=== PATIENT | male | born 1985 | race Caucasian/White ===

== ENCOUNTER 2017-12-11 10:24 | Emergency (ER) | payer SELFPAY ==
[~2017-12-11] VITALS: Ht 180.3 cm; Wt 77.1 kg
[2017-12-11 10:50] VITALS: BP 133/63
== END 2017-12-11 13:03 | disposition home or self-care (01) ==
LOC: ER 10:24
DX: S30.1XXA Contusion of abdominal wall, initial encounter (principal); X58.XXXA Exposure to other specified factors, initial encounter; Y93.89 Activity, other specified; Y92.89 Other specified places as the place of occurrence of the external cause; Y99.8 Other external cause status
CPT/HCPCS: 76705

== ENCOUNTER 2021-01-26 23:20 | Emergency (ER) | payer MEDICAID ==
[~2021-01-26] VITALS: Ht 180.3 cm; Wt 95.3 kg
[2021-01-26] MEDS ORDERED: SODIUM CHLORIDE 0.9% 1,000 ML IV ONE (23:45)
[2021-01-26 23:57] LABS: Basophils # (auto) 0 10 ^3/uL (0-0.2); Basophils % (auto) 0.3 % (0.0-2.0); Eosinophils # (auto) 0 10 ^3/uL (0-0.8); Eosinophils % (auto) 0.2 % (0.0-7.0); Hematocrit 47.2 % (41.0-53.0); Hemoglobin 16.3 g/dL (13.5-17.5); Lymphocytes # (auto) 1.5 10 ^3/uL (0.4-5.4); Lymphocytes % (auto) 9.9 % (10.0-50.0); Mean Corpuscular Hgb Conc. 34.4 g/dL (32.0-36.0); Mean Corpuscular Volume 90.1 fL (80.0-100.0); Monocytes # (auto) 1.2 10 ^3/uL (0-1.3); Monocytes % (auto) 7.8 % (0.0-12.0); Neutrophils # (auto) 12.7 10 ^3/uL (1.6-8.6); Neutrophils % (auto) 81.8 % (37.0-80.0); Platelet Count (auto) 276 10^3/uL (140-450); Red Blood Cells 5.24 10^6/uL (4.5-5.90); Red Cell Distribution Width 12.8 % (11.8-14.3); White Blood Cell 15.5 10^3/uL (4.4-10.8)
[2021-01-27 00:08] VITALS: BP 131/95
[2021-01-27] MEDS ORDERED: cefTRIAXone 1GM/50ML D5W 50 ML IV ONE (00:15)
[2021-01-27] MEDS ORDERED: HYDROcodone-ACET 5/325MG TAB PO ONE (00:15)
[2021-01-27 00:19] LABS: Albumin 4.1 g/dL (3.4-5.0); BUN/Creatinine Ratio 9.8; Calcium 8.2 mg/dL (8.5-10.1); Potassium 3.5 mmol/L (3.5-5.1)
[2021-01-27 00:21] LABS: Amphetamine Screen, Urine NEGATIVE (NEGATIVE); Barbiturate Scree,Urine NEGATIVE (NEGATIVE); Benzodiazephine Screen, Urine NEGATIVE (NEGATIVE); Cannabinoid Screen, Urine POSITIVE (NEGATIVE); Cocaine Screen, Urine NEGATIVE (NEGATIVE); Opiate Scree,Urine NEGATIVE (NEGATIVE); Phencyclidine Screen, Urine NEGATIVE (NEGATIVE)
[2021-01-27 00:22] LABS: Bilirubin, Total 0.5 mg/dL (0.2-1.0); Total Protein 8.2 g/dL (6.4-8.2)
[2021-01-27 01:03] LABS: Urine Bacteria NONE SEEN /hpf (None Seen); Urine Blood TRACE /uL (Negative); Urine Specific Gravity 1.006 (1.001-1.035); Urine WBC 1 /hpf (0 - 3)
== END 2021-01-27 02:11 | disposition home or self-care (01) ==
LOC: ER 23:21
DX: S41.011A Laceration without foreign body of right shoulder, initial encounter (principal); S43.101A Unspecified dislocation of right acromioclavicular joint, initial encounter; F12.10 Cannabis abuse, uncomplicated; V87.8XXA Person injured in other specified noncollision transport accidents involving motor vehicle (traffic), initial encounter; Y93.55 Activity, bike riding; Y92.488 Other paved roadways as the place of occurrence of the external cause; Y99.8 Other external cause status
CPT/HCPCS: 12001; 36415; 73030; 80053; 80307; 80320; 81001; 85025; 96361; 96365; 99284; J0696; J2001; J7030

== ENCOUNTER 2022-08-16 14:20 | Emergency (ER) | payer OTHER ==
[~2022-08-16] VITALS: Ht 180.3 cm; Wt 89.0 kg
[2022-08-16 19:59] VITALS: BP 148/97
[2022-08-16] MEDS ORDERED: IBUP800T27 PO (20:00)
== END 2022-08-16 20:33 | disposition home or self-care (01) ==
LOC: ER 14:23
DX: S43.101A Unspecified dislocation of right acromioclavicular joint, initial encounter (principal); F12.10 Cannabis abuse, uncomplicated; X58.XXXA Exposure to other specified factors, initial encounter; Y93.89 Activity, other specified; Y92.89 Other specified places as the place of occurrence of the external cause; Y99.8 Other external cause status
CPT/HCPCS: 73030

== ENCOUNTER 2023-03-05 12:14 | Emergency (ER) | payer MEDICAID ==
[~2023-03-05] VITALS: Ht 180.3 cm; Wt 91.0 kg
[~2023-03-05 12:14] MED LIST: IBUP-1456 PO
[2023-03-05] MEDS ORDERED: HYDROmorphone HCL 2 MG/ML VL/or syr IM ONE (14:30)
[2023-03-05] MEDS ORDERED: ONDANSETRON HCL 4 MG/2 ML VIAL IM ONE (14:30)
[2023-03-05 15:23] LABS: Basophils # (auto) 0 10 ^3/uL (0-0.2); Basophils % (auto) 0.2 % (0.0-2.0); Eosinophils # (auto) 0 10 ^3/uL (0-0.8); Eosinophils % (auto) 0.1 % (0.0-7.0); Hematocrit 41.7 % (41.0-53.0); Hemoglobin 13.5 g/dL (13.5-17.5); Lymphocytes # (auto) 2.2 10 ^3/uL (0.4-5.4); Lymphocytes % (auto) 21.9 % (10.0-50.0); Mean Corpuscular Hemoglobin 29.9 pg (28.0-32.0); Mean Corpuscular Hgb Conc. 32.5 g/dL (32.0-36.0); Mean Corpuscular Volume 92.1 fL (80.0-100.0); Monocytes # (auto) 0.8 10 ^3/uL (0-1.3); Monocytes % (auto) 8.2 % (0.0-12.0); Neutrophils % (auto) 69.6 % (37.0-80.0); Red Blood Cells 4.53 10^6/uL (4.5-5.90); Red Cell Distribution Width 14.3 % (11.8-14.3); White Blood Cell 10.1 10^3/uL (4.4-10.8)
[2023-03-05 15:43] LABS: Potassium 3.7 mmol/L (3.5-5.1)
[2023-03-05 15:50] LABS: Lactic Acid w/Reflex 2.1 mmol/L (0.4-2.0)
[2023-03-05 15:51] LABS: Albumin 4.7 g/dL (3.4-5.0); Bilirubin, Total 0.5 mg/dL (0.2-1.0); Calcium 9.4 mg/dL (8.5-10.1)
[2023-03-05] MEDS ORDERED: METOCLOPRAMIDE HCL 10 MG TAB PO ONE (16:45)
[2023-03-05] MEDS ORDERED: MECLIZINE HCL 25 MG TAB PO ONE (16:45)
[2023-03-05] MEDS ORDERED: ZOFR4T PO (17:57)
[2023-03-05] MEDS ORDERED: METO-281 PO (17:57)
[2023-03-05] MEDS ORDERED: PERCOT PO (17:57)
[2023-03-05 18:09] VITALS: BP 150/94
== END 2023-03-05 18:11 | disposition home or self-care (01) ==
LOC: ER 12:14
DX: G89.18 Other acute postprocedural pain (principal); H57.12 Ocular pain, left eye; Z90.01 Acquired absence of eye; Z79.1 Long term (current) use of non-steroidal anti-inflammatories (NSAID)
CPT/HCPCS: 36415; 70480; 80053; 83605; 85025; 96372; 99285; J1170; J2405; J8597